=== PATIENT | male | born 1960 | race Caucasian/White ===

== ENCOUNTER 2020-09-29 10:10 | Inpatient (IN) | payer BC ==
[2020-09-29] MEDS ORDERED: CEFTRIAXONE 1,000 MG in DEXTROSE 5%-WATER - 50 ML IVPB ONE (11:04)
[2020-09-29] MEDS ORDERED: AZITHROMYCIN IVPB 500 MG in DEXTROSE 5%-WATER - 250 ML IVPB ONE (11:04)
[2020-09-29] MEDS ORDERED: CEFTRIAXONE 1 GM/50 ML BAG ONE (11:11)
[2020-09-29] MEDS ORDERED: AZITHROMYCIN IVPB 500 MG/250 ML BAG IVPB ONE (11:12)
[2020-09-29] MEDS ORDERED: SODIUM CHLORIDE 0.9% 500 ML INFUS.BAG IV ONE (11:15)
[2020-09-29 11:16] LABS: BASO % 0.1 % (0-2.0); HEMATOCRIT 37.6 % (35.4-49); LYMPH % 9.3 % (8-40); MCHC 34.7 g/dl (32.0-35.9); MEAN CELL VOLUME 89.4 fl (80-96); MEAN PLT VOLUME 7.8 fl (7.5-11.1); MONO % 7.5 % (3.8-10.2); NEUT % 83.1 % (42.8-82.8); PLATELET COUNT 153 10^3/uL (134-434); RBC 4.21 M/mm3 (4.00-5.60); RDW 13.2 % (11.9-15.9)
[2020-09-29 11:20] LABS: EPI CELLS 11 /uL (0-25.1); HYALINE CASTS 17 /uL (0-3.1); PH,URINE 5.5 (5.0-8.0); URINE APPEARANCE CLEAR; URINE BACTERIA 3 /uL (0-1359); URINE BILIRUBIN 1+ (NEGATIVE); URINE COLOR DK YELLOW; URINE GLUCOSE (UA) NEGATIVE (NEGATIVE); URINE KETONE TRACE (NEGATIVE); URINE LEUK ESTERASE TRACE (NEGATIVE); URINE NITRITE NEGATIVE (NEGATIVE); URINE PROTEIN 2+ (NEGATIVE); URINE WBC 30 /uL (0-25.8)
[2020-09-29 11:22] LABS: INR 1.2 (0.83-1.09); PROTHROMBIN TIME (PATIENT) 14.4 SEC (9.7-13.0)
[2020-09-29 11:25] LABS: ACTIVATED PTT 29.9 SECONDS (25.2-36.5)
[2020-09-29 11:33] LABS: CHLORIDE 102 mmol/L (98-107); SODIUM 136 mmol/L (136-145); VENOUS BASE EXCESS 0.7 mmol/L (-2-2); VENOUS O2 SATURATION 82.9 % (70-80); VENOUS PCO2 32.8 mmHg (38-52); VENOUS PH 7.475 (7.310-7.410)
[2020-09-29 11:36] LABS: CALCIUM 7.8 mg/dL (8.5-10.1)
[2020-09-29 11:37] LABS: ALBUMIN 3.2 g/dl (3.4-5.0); ANION GAP 8 MMOL/L (8-16); BLOOD UREA NITROGEN 17.4 mg/dL (7-18); CO2 26 mmol/L (21-32); GLUCOSE,RANDOM 114 mg/dL (74-106)
[2020-09-29 11:39] LABS: BILIRUBIN,DIRECT 0.3 mg/dL (0.0-0.2)
[2020-09-29 11:40] LABS: CHOLESTEROL 142 mg/dL (50-200); SGOT/AST 86 U/L (15-37); SGPT/ALT 68 U/L (13-61); TRIGLYCERIDES 95 mg/dL (0-150)
[2020-09-29 11:41] LABS: BILIRUBIN,TOTAL 0.9 mg/dL (0.2-1); LDL CHOLESTEROL (ONLY SJRH) 83 mg/dL (5-100); TOT PROT 6.5 g/dl (6.4-8.2)
[2020-09-29 11:42] LABS: ALK PHOS 60 U/L (45-117); HDL CHOLESTEROL 39 mg/dL (40-60)
[2020-09-29 11:43] LABS: LDH 412 U/L (87-246)
[2020-09-29 12:00] LABS: URINE RBC 123.3 /uL (0-23.9)
[2020-09-29] MEDS ORDERED: DEXAMETHASONE SOD PHOSPHATE 4 MG/1 ML VIAL IVPUSH ONE (13:10)
[2020-09-29] MEDS ORDERED: DEXAMETHASONE SOD PHOSPHATE 10 MG/1 ML VIAL ONE (13:13)
[2020-09-29] MEDS ORDERED: ACETAMINOPHEN 325 MG TABLET (FP) PO PRN (16:24)
[2020-09-29] MEDS: ASCORBIC ACID 500 MG TABLET (FP) PO SCH (23:35)
[2020-09-29] MEDS ORDERED: ASCORBIC ACID 500 MG TABLET (FP) ONE (23:36)
[2020-09-30 02:18] VITALS: BMI 42.8
[2020-09-30 08:45] LABS: HEMATOCRIT 37.5 % (35.4-49); HEMOGLOBIN 13.2 GM/dL (11.7-16.9); MCH 31.4 pg (25.7-33.7); MCHC 35.2 g/dl (32.0-35.9); MEAN CELL VOLUME 89.3 fl (80-96); MEAN PLT VOLUME 7.8 fl (7.5-11.1); PLATELET COUNT 172 10^3/uL (134-434); RDW 12.9 % (11.9-15.9); WHITE BLOOD COUNT 4.6 K/mm3 (4.0-10.0)
[2020-09-30 09:10] LABS: CALCIUM 8.2 mg/dL (8.5-10.1)
[2020-09-30 09:11] LABS: BLOOD UREA NITROGEN 17.7 mg/dL (7-18)
[2020-09-30 09:13] LABS: CREATININE 0.7 mg/dL (0.55-1.3)
[2020-09-30] MEDS ORDERED: AZITHROMYCIN IVPB 500 MG/250 ML BAG IVPB SCH (10:00)
[2020-09-30] MEDS ORDERED: cefTRIAXone SODIUM 1 GM VIAL ONE (10:05)
[2020-09-30] MEDS ORDERED: DEXTROSE 5%-WATER - 50 ML IVPB ONE (10:06)
[2020-09-30] MEDS: ZINC SULFATE 220 MG CAPSULE (FP) PO SCH (10:14)
[2020-09-30] MEDS: CEFTRIAXONE 1 GM in DEXTROSE 5%-WATER - 50 ML IVPB SCH (10:14)
[2020-09-30] MEDS: ASCORBIC ACID 500 MG TABLET (FP) PO SCH ×2 (10:14→21:07)
[2020-09-30] MEDS: ENOXAPARIN NA (PORCINE) 40 MG/0.4 ML DISP.SYRIN SQ SCH (10:14)
[2020-09-30] MEDS: DEXAMETHASONE SOD PHOSPHATE 4 MG/1 ML VIAL IVPUSH SCH (14:18)
[2020-09-30] MEDS: BUDESONIDE/FORMETEROL FUMARATE 160/4.5 mcg INHALER IH SCH ×2 (14:19→21:07)
[2020-09-30] MEDS ORDERED: REMDESIVIR 200 MG in SODIUM CHLORIDE 250 ML IVPB ONE (15:00)
[2020-09-30] MEDS ORDERED: ONDANSETRON 4 MG/2 ML VIAL IVPUSH PRN (16:30)
[2020-10-01 08:04] LABS: BASO % 0.1 % (0-2.0); HEMATOCRIT 36.9 % (35.4-49); HEMOGLOBIN 13.1 GM/dL (11.7-16.9); LYMPH % 7.7 % (8-40); MCH 31.3 pg (25.7-33.7); MCHC 35.5 g/dl (32.0-35.9); MEAN CELL VOLUME 88.2 fl (80-96); MEAN PLT VOLUME 7.7 fl (7.5-11.1); MONO % 8.5 % (3.8-10.2); NEUT % 83.7 % (42.8-82.8); PLATELET COUNT 205 10^3/uL (134-434); RBC 4.18 M/mm3 (4.00-5.60); RDW 12.8 % (11.9-15.9); WHITE BLOOD COUNT 5.6 K/mm3 (4.0-10.0)
[2020-10-01 09:07] LABS: BLOOD UREA NITROGEN 19.4 mg/dL (7-18)
[2020-10-01 09:08] LABS: CALCIUM 8.2 mg/dL (8.5-10.1)
[2020-10-01 09:09] LABS: CREATININE 0.7 mg/dL (0.55-1.3); MAGNESIUM 2.4 mg/dL (1.8-2.4); PHOSPHOROUS 3.7 mg/dL (2.5-4.9)
[2020-10-01 09:10] LABS: BILIRUBIN,TOTAL 0.6 mg/dL (0.2-1)
[2020-10-01 09:11] LABS: TOT PROT 6.2 g/dl (6.4-8.2)
[2020-10-01] MEDS ORDERED: DEXTROSE 5%-WATER - 50 ML IVPB ONE (09:31)
[2020-10-01] MEDS ORDERED: cefTRIAXone SODIUM 1 GM VIAL ONE (09:31)
[2020-10-01] MEDS ORDERED: PT OWN MED DRAWER 7, Y5N ONE (09:32)
[2020-10-01 09:38] LABS: ERYTHROCYTE SEDIMENTATION RATE 56 mm/hr (0-20)
[2020-10-01] MEDS: HYDROCHLOROTHIAZIDE 25 MG TABLET (FP) PO SCH (10:28)
[2020-10-01] MEDS: ENOXAPARIN NA (PORCINE) 40 MG/0.4 ML DISP.SYRIN SQ SCH (10:28)
[2020-10-01] MEDS: VALSARTAN 160 MG TABLET PO SCH (10:28)
[2020-10-01] MEDS: DEXAMETHASONE SOD PHOSPHATE 4 MG/1 ML VIAL IVPUSH SCH (10:28)
[2020-10-01] MEDS: FAMOTIDINE 20 MG/50 ML IVPB 20 MG/50 ML MG IVPB SCH ×2 (10:29→21:06)
[2020-10-01] MEDS: metoPROLOL SUCCINATE 25 MG TAB.SR.24H (FP) PO SCH (10:29)
[2020-10-01] MEDS: CEFTRIAXONE 1 GM in DEXTROSE 5%-WATER - 50 ML IVPB SCH (10:29)
[2020-10-01] MEDS: ASCORBIC ACID 500 MG TABLET (FP) PO SCH ×2 (10:29→21:06)
[2020-10-01] MEDS: ZINC SULFATE 220 MG CAPSULE (FP) PO SCH (10:29)
[2020-10-01] MEDS: BUDESONIDE/FORMETEROL FUMARATE 160/4.5 mcg INHALER IH SCH ×2 (10:29→21:06)
[2020-10-01] MEDS: REMDESIVIR 100 MG in SODIUM CHLORIDE 250 ML IVPB SCH (16:23)
[2020-10-02 07:44] LABS: HEMOGLOBIN 13.3 GM/dL (11.7-16.9); MCH 31.2 pg (25.7-33.7); MEAN CELL VOLUME 89.2 fl (80-96); MEAN PLT VOLUME 7.8 fl (7.5-11.1); PLATELET COUNT 235 10^3/uL (134-434); RBC 4.26 M/mm3 (4.00-5.60); RDW 12.9 % (11.9-15.9); WHITE BLOOD COUNT 8.5 K/mm3 (4.0-10.0)
[2020-10-02 08:02] LABS: BLOOD UREA NITROGEN 22.8 mg/dL (7-18)
[2020-10-02 08:03] LABS: ALBUMIN 2.9 g/dl (3.4-5.0); CALCIUM 8.3 mg/dL (8.5-10.1); MAGNESIUM 2.3 mg/dL (1.8-2.4)
[2020-10-02 08:06] LABS: CREATININE 0.7 mg/dL (0.55-1.3)
[2020-10-02 08:08] LABS: BILIRUBIN,TOTAL 0.5 mg/dL (0.2-1); TOT PROT 6.2 g/dl (6.4-8.2)
[2020-10-02] MEDS ORDERED: DEXTROSE 5%-WATER - 50 ML IVPB ONE (09:21)
[2020-10-02] MEDS ORDERED: cefTRIAXone SODIUM 1 GM VIAL ONE (09:21)
[2020-10-02] MEDS ORDERED: PT OWN MED DRAWER 7, Y5N ONE (09:21)
[2020-10-02] MEDS: CEFTRIAXONE 1 GM in DEXTROSE 5%-WATER - 50 ML IVPB SCH (09:24)
[2020-10-02] MEDS: ENOXAPARIN NA (PORCINE) 40 MG/0.4 ML DISP.SYRIN SQ SCH (09:25)
[2020-10-02] MEDS: DEXAMETHASONE SOD PHOSPHATE 4 MG/1 ML VIAL IVPUSH SCH (09:26)
[2020-10-02] MEDS: ASCORBIC ACID 500 MG TABLET (FP) PO SCH ×2 (09:27→21:21)
[2020-10-02] MEDS: metoPROLOL SUCCINATE 25 MG TAB.SR.24H (FP) PO SCH (09:27)
[2020-10-02] MEDS: ZINC SULFATE 220 MG CAPSULE (FP) PO SCH (09:27)
[2020-10-02] MEDS: HYDROCHLOROTHIAZIDE 25 MG TABLET (FP) PO SCH (09:28)
[2020-10-02] MEDS: VALSARTAN 160 MG TABLET PO SCH (09:28)
[2020-10-02] MEDS: BUDESONIDE/FORMETEROL FUMARATE 160/4.5 mcg INHALER IH SCH ×2 (09:29→21:21)
[2020-10-02] MEDS: FAMOTIDINE 20 MG TABLET PO SCH (10:38)
[2020-10-02 11:02] LABS: ANISOCYTOSIS 0; MACROCYTOSIS 0; PLATELET ESTIMATE NORMAL
[2020-10-02] MEDS: REMDESIVIR 100 MG in SODIUM CHLORIDE 250 ML IVPB SCH (14:56)
[2020-10-03 07:32] LABS: HEMOGLOBIN 13.8 GM/dL (11.7-16.9); MCH 30.4 pg (25.7-33.7); MCHC 33.7 g/dl (32.0-35.9); MEAN CELL VOLUME 90.3 fl (80-96); MEAN PLT VOLUME 8.2 fl (7.5-11.1); PLATELET COUNT 292 10^3/uL (134-434); RBC 4.54 M/mm3 (4.00-5.60); RDW 12.9 % (11.9-15.9); WHITE BLOOD COUNT 11.7 K/mm3 (4.0-10.0)
[2020-10-03 07:52] LABS: BLOOD UREA NITROGEN 22.5 mg/dL (7-18); CALCIUM 8.3 mg/dL (8.5-10.1)
[2020-10-03 07:53] LABS: MAGNESIUM 2.2 mg/dL (1.8-2.4)
[2020-10-03 07:55] LABS: CREATININE 0.8 mg/dL (0.55-1.3)
[2020-10-03 07:56] LABS: PHOSPHOROUS 4.3 mg/dL (2.5-4.9)
[2020-10-03 07:57] LABS: BILIRUBIN,TOTAL 0.5 mg/dL (0.2-1); TOT PROT 6.2 g/dl (6.4-8.2)
[2020-10-03] MEDS: ZINC SULFATE 220 MG CAPSULE (FP) PO SCH (09:35)
[2020-10-03] MEDS: VALSARTAN 160 MG TABLET PO SCH (09:36)
[2020-10-03] MEDS: metoPROLOL SUCCINATE 25 MG TAB.SR.24H (FP) PO SCH (09:36)
[2020-10-03] MEDS: FAMOTIDINE 20 MG TABLET PO SCH (09:36)
[2020-10-03] MEDS: BUDESONIDE/FORMETEROL FUMARATE 160/4.5 mcg INHALER IH SCH ×2 (09:36→21:51)
[2020-10-03] MEDS: HYDROCHLOROTHIAZIDE 25 MG TABLET (FP) PO SCH (09:36)
[2020-10-03] MEDS: ENOXAPARIN NA (PORCINE) 40 MG/0.4 ML DISP.SYRIN SQ SCH (09:36)
[2020-10-03] MEDS: ASCORBIC ACID 500 MG TABLET (FP) PO SCH ×2 (09:36→21:53)
[2020-10-03] MEDS: DEXAMETHASONE SOD PHOSPHATE 4 MG/1 ML VIAL IVPUSH SCH (09:36)
[2020-10-03] MEDS ORDERED: PT OWN MED DRAWER 7, Y5N ONE (14:51)
[2020-10-03] MEDS: REMDESIVIR 100 MG in SODIUM CHLORIDE 250 ML IVPB SCH (14:53)
[2020-10-04] MEDS: metoPROLOL SUCCINATE 25 MG TAB.SR.24H (FP) PO SCH (10:36)
[2020-10-04] MEDS: ZINC SULFATE 220 MG CAPSULE (FP) PO SCH (10:36)
[2020-10-04] MEDS: VALSARTAN 160 MG TABLET PO SCH (10:36)
[2020-10-04] MEDS: FAMOTIDINE 20 MG TABLET PO SCH (10:36)
[2020-10-04] MEDS: HYDROCHLOROTHIAZIDE 25 MG TABLET (FP) PO SCH (10:36)
[2020-10-04] MEDS: ASCORBIC ACID 500 MG TABLET (FP) PO SCH ×2 (10:36→20:59)
[2020-10-04] MEDS: ENOXAPARIN NA (PORCINE) 40 MG/0.4 ML DISP.SYRIN SQ SCH (10:37)
[2020-10-04] MEDS: BUDESONIDE/FORMETEROL FUMARATE 160/4.5 mcg INHALER IH SCH ×2 (10:37→21:04)
[2020-10-04] MEDS: DEXAMETHASONE SOD PHOSPHATE 4 MG/1 ML VIAL IVPUSH SCH (10:51)
[2020-10-04] MEDS: REMDESIVIR 100 MG in SODIUM CHLORIDE 250 ML IVPB SCH (15:35)
[2020-10-04] MEDS: guaiFENesin/D-M SUGAR-FREE/ACLHOL-FREE 5 ML UNIT DOSE PO PRN (20:59)
[2020-10-05 10:18] LABS: BILIRUBIN,DIRECT 0.2 mg/dL (0.0-0.2)
[2020-10-05 10:20] LABS: BILIRUBIN,TOTAL 0.6 mg/dL (0.2-1); TOT PROT 6.2 g/dl (6.4-8.2)
[2020-10-05] MEDS: ASCORBIC ACID 500 MG TABLET (FP) PO SCH (10:38)
[2020-10-05] MEDS: DEXAMETHASONE SOD PHOSPHATE 4 MG/1 ML VIAL IVPUSH SCH (10:38)
[2020-10-05] MEDS: ENOXAPARIN NA (PORCINE) 40 MG/0.4 ML DISP.SYRIN SQ SCH (10:38)
[2020-10-05] MEDS: ZINC SULFATE 220 MG CAPSULE (FP) PO SCH (10:38)
[2020-10-05] MEDS: VALSARTAN 160 MG TABLET PO SCH (10:38)
[2020-10-05] MEDS: HYDROCHLOROTHIAZIDE 25 MG TABLET (FP) PO SCH (10:38)
[2020-10-05] MEDS: FAMOTIDINE 20 MG TABLET PO SCH (10:39)
[2020-10-05] MEDS: metoPROLOL SUCCINATE 25 MG TAB.SR.24H (FP) PO SCH (10:39)
[2020-10-05] MEDS: BUDESONIDE/FORMETEROL FUMARATE 160/4.5 mcg INHALER IH SCH (10:39)
[2020-10-05] MEDS: guaiFENesin/D-M SUGAR-FREE/ACLHOL-FREE 5 ML UNIT DOSE PO PRN (10:39)
[2020-10-05 11:02] VITALS: BP 126/78; PULSE 69; TEMP 98.6
== END 2020-10-05 14:25 | disposition home or self-care (01) | DRG 177 ==
LOC: JER 10:10 → JERBED 11:21 → J4S 09-30 00:33 → J8W 10-03 20:18
PROVIDERS: ADMIT Internal Medicine; ATTEND Internal Medicine
PROC: XW033E5 Introduction of Remdesivir Anti-infective into Peripheral Vein, Percutaneous Approach, New Technology Group 5 (ICD-10-PCS; principal; 2020-09-30)
DX: U07.1 COVID-19 (principal); J12.82 Pneumonia due to coronavirus disease 2019; Z85.46 Personal history of malignant neoplasm of prostate; I10 Essential (primary) hypertension; R94.5 Abnormal results of liver function studies
CPT/HCPCS: 36415; 71045-TC-FY; 71250-TC; 80048; 80053; 80061; 80076; 81003; 82248; 82550; 82553; 82728; 82803; 83605; 83615; 83735; 84100; 84443; 84484; 85025; 85027; 85379; 85610; 85651; 85730; 86140; 87040; 87070; 87086; 87205; 87804; 87899; 93005; 93010; 94761; 97116-GP; 97161-GP; 99285-25; C9399; C9803; U0003; U0005